=== PATIENT | male | born 1990 | race Caucasian/White ===

== ENCOUNTER 2024-05-05 21:01 | Emergency (ER) | payer OTHER ==
[~2024-05-05] VITALS: Ht 167.6 cm; Wt 68.2 kg
[2024-05-05 21:07] VITALS: TEMP 99.4
[2024-05-05] MEDS ORDERED: ACETAMINOPHEN 500 MG TABLET PO ONE (23:45)
[2024-05-06 00:43] LABS: COVID AG,FIA SOURCE NASAL SWAB
[2024-05-06] MEDS: ACETAMINOPHEN/CODEINE 300-30 MG TABLET PO ONE (00:45)
[2024-05-06] MEDS: CEPHALEXIN MONOHYDRATE 500 MG CAPSULE PO ONE (00:46)
[2024-05-06] MEDS: GuaiFENesin/D-METHORPHAN [SUGAR-FREE] 200-20MG/10 ML SYRUP UDCUP PO ONE (00:46)
[2024-05-06] MEDS: PROPARACAINE HCL 0.5% 15 ML OPHTHALMIC SOLUTION OU ONE (00:46)
[2024-05-06] MEDS: DOXYCYCLINE HYCLATE 100 MG TABLET PO ONE (00:46)
[2024-05-06 00:51] LABS: INFLUENZA TYPE A NEGATIVE FOR TYPE A (NEGATIVE); INFLUENZA TYPE B NEGATIVE FOR TYPE B (NEGATIVE); SARS-COV2 (COVID) ANTIGEN,FIA Negative (Negative)
[2024-05-06 00:56] VITALS: BP 155/68; PULSE 68; RESP 18; O2SAT 100
[2024-05-06] MEDS ORDERED: DOXY-354 PO (01:19)
[2024-05-06] MEDS ORDERED: CEPH-558 PO (01:19)
[2024-05-06] MEDS ORDERED: NAPH15DR75 OD (01:19)
[2024-05-06] MEDS ORDERED: GUAIFDM PO (01:19)
[2024-05-06] MEDS ORDERED: IBUP-1554 PO (01:24)
[2024-05-06] MEDS ORDERED: ACET-2080 PO (01:24)
== END 2024-05-06 01:41 | disposition home or self-care (01) ==
LOC: EMS 21:05
DX: T15.11XA Foreign body in conjunctival sac, right eye, initial encounter (principal); J34.0 Abscess, furuncle and carbuncle of nose; J06.9 Acute upper respiratory infection, unspecified; F14.90 Cocaine use, unspecified, uncomplicated; Z20.822 Contact with and (suspected) exposure to COVID-19; W44.8XXA Other foreign body entering into or through a natural orifice, initial encounter; Y93.89 Activity, other specified; Y92.89 Other specified places as the place of occurrence of the external cause; Y99.8 Other external cause status
CPT/HCPCS: 87804; 99284; J9035; Z7502; Z7610